=== PATIENT | male | born 1955 | race Caucasian/White ===

== ENCOUNTER 2021-08-20 19:32 | Emergency (ER) | payer MEDICARE ==
[~2021-08-20] VITALS: Ht 180.3 cm; Wt 72.7 kg
[~2021-08-20 19:32] MED LIST: ALBU17IN INH; AVEL1TAB2 PO; CARA1TAB2 PO; COUM1TAB17 PO; NICO21DI3 EXT; NORCOBULK PO; PRED20TA PO; PROT1TAB2 PO; SYMB80INH INH; VITMTA PO; ZANTTAB PO; ZOFR4SOL PO
[2021-08-20 19:33] VITALS: BP 127/88
--- OUTSIDE RECORDS SUMMARY | 2021-08-20 19:40 | CCD | Continuity of Care Document ---
Author Author [facility] Organization Unknown Address [address] [place] [id number] Phone [phone] Care Team Providers Care Tailor Garment Fitter Name Role Phone Ivana JESUSCKarine AUTM [phone] Social History Type Date Description Comments Sex Unknown Medications Active Medications SIG Qnty Indications Ordering Provide r Date Trelegy Ellipta 100- 62.5-25mcg/Inh Aerosol by mouth twice a day 60units [facility] 07/19/2021 Cyclobenzaprine HCL 10mg Tablets take 1 tablet by mouth twice daily as needed for muscle spasm 60tabs [facility] 03/09/2021 Breo Ellipta 100-25mcg/Inh Aerosol [facility] Medications Administered in Office Medication SIG Qnty Indications Ordering Provider Date Technetium TC 99M Sestamibi Injection [facility] 03/04/2017 Vital Signs Date Vital Result Comment 07/19/2021 10:53am Height 71 inches 5'11" Weight 164.00 lb BMI (Body Mass Index) 22.9 kg/m2 Body Temperature 97.5 F BP Systolic 129 mmHg BP Diastolic 85 mmHg Heart Rate 94 /min O2 % BldC Oximetry 95 % 03/09/2021 11:02am Height 71 inches 5'11" Weight 153.38 lb BMI (Body Mass Index) 21.4 kg/m2 Body Temperature 98.1 F BP Systolic 130 mmHg BP Diastolic 82 mmHg Heart Rate 98 /min O2 % BldC Oximetry 95 % Procedures Date Code Description Status 07/19/2021 57671 Office/Outpatient Established Lo w MDM 20-29 Min Completed 03/09/2021 28525 Office/Outpatient Established Mo d MDM 30-39 Min Completed Encounters Type Date Location Provider Dx Diagnosis Office Visit 07/19/2021 10:45a [facility] M45.2 Ankylosing spondylitis of cervical region J43.9 Emphysema, unspecified Office Visit 03/09/2021 11:00a [facility] I10 Essential (primary) hypertension J43.9 Emphysema, unspecified M45.2 Ankylosing spondylitis of ce rvical region Assessments Date Code Description Provider 07/19/2021 M45.2 [facility] 07/19/2021 J43.9 Emphysema, unspecified Jeromy maradiaga [facility] 03/09/2021 I10 Essential (primary) hypertension [facility] 03/09/2021 J43.9 Emphysema, unspecified [facility]adiaga [facility] 03/09/2021 M45.2 [facility]
--- OUTSIDE RECORDS SUMMARY | 2021-08-20 19:40 | CCD ---
Author Author [facility] Organization [facility] Address Unknown Phone Unavailable Care Team Providers Care Beer Runner Name Role Phone Jefferson Varela MD Unavailable Unavailable Jefferson Varela MD Unavailable Unavailable Jefferson Varela MD Unavailable Unavailable Jefferson Varela MD Unavailable Unavailable Jefferson Varela MD Unavailable Unavailable Jefferson Varela MD Unavailable Unavailable GWENLAUREEN MD Unavailable Unavailable GWENLAUREEN MD Unavailable Unavailable GWENRHYSQBOJAVIER GARCIA MD Unavailable Unavailable GWENRHYSQBOJAVIER GARCIA MD Unavailable Unavailable GWENRHYSQBOJAVIER GARCIA MD Unavailable Unavailable GWENRHYSQBOJAVIER GARCIA MD Unavailable Unavailable GWENRHYSQBOJAVIER GARCIA MD Unavailable Unavailable GWEN MAQBOJAVIER GARCIA MD Unavailable Unavailable GWEN MAQBOJAVIER GARCIA MD Unavailable Unavailable GWEN MAQBOJAVIER GARCIA MD Unavailable Unavailable GWEN MAQBOOL JOSE ROSADO Unavailable Unavailable GWEN MAQBOOL JOSE ROSADO Unavailable Unavailable GWEN MAQBOOL JOSE ROSADO Unavailable Unavailable GWEN MAQBOOL JOSE ROSADO Unavailable Unavailable GWEN MAQBOOL JOSE ROSADO Unavailable Unavailable GWEN MAQBOOL JOSE ROSADO Unavailable Unavailable GWEN, MAQBOOL JOSE MD Unavailable Unavailable GWEN, MAQBOOL JOSE MD Unavailable Unavailable GWEN, MAQBOOL JOSE MD Unavailable Unavailable GWEN, MAQBOOL JOSE MD Unavailable Unavailable GWEN, MAQBOOL JOSE MD Unavailable Unavailable GWEN, MAQBOOL JOSE MD Unavailable Unavailable GWEN, MAQBOOL JOSE MD Unavailable Unavailable GWEN, MAQBOOL JOSE MD Unavailable Unavailable GWEN, MAQBOOL JOSE MD Unavailable Unavailable GWEN, MAQBOOL JOSE MD Unavailable Unavailable GWEN, MAQBOOL JOSE MD Unavailable Unavailable GWEN, MAQBOOL JOSE MD Unavailable Unavailable GWEN, MAQBOOL JOSE MD Unavailable Unavailable GWEN, MAQBOOL JOSE MD Unavailable Unavailable GWEN, MAQBOOL JOSE MD Unavailable Unavailable GWEN, MAQBOOL JOSE MD Unavailable Unavailable GWEN, MAQBOOL JOSE MD Unavailable Unavailable GWEN, MAQBOOL JOSE MD Unavailable Unavailable GWEN, MAQBOOL JOSE MD Unavailable Unavailable GWEN, MAQBOOL JOSE MD Unavailable Unavailable GWEN, MAQBOOL JOSE MD Unavailable Unavailable GWEN, MAQBOOL JOSE MD Unavailable Unavailable GWEN, MAQBOOL JOSE MD Unavailable Unavailable GWEN, MAQBOOL JOSE MD Unavailable Unavailable GWEN, MAQBOOL JOSE MD Unavailable Unavailable GWEN, MAQBOOL JOSE MD Unavailable Unavailable GWEN, MAQBOOL JOSE MD Unavailable Unavailable GWEN, MAQBOOL JOSE MD Unavailable Unavailable GWEN, MAQBOOL JOSE MD Unavailable Unavailable GWEN, MAQBOOL JOSE MD Unavailable Unavailable GWEN, MAQBOOL JOSE MD Unavailable Unavailable GWEN, MAQBOOL JOSE MD Unavailable Unavailable GWEN, MAQBOOL JOSE MD Unavailable Unavailable GWEN, MAQBOOL JOSE MD Unavailable Unavailable GWEN, MAQBOOL JOSE MD Unavailable Unavailable GWEN, MAQBOOL JOSE MD Unavailable Unavailable GWEN, MAQBOOL JOSE MD Unavailable Unavailable GWEN, MAQBOOL JOSE MD Unavailable Unavailable GWEN, MAQBOOL JOSE MD Unavailable Unavailable GWEN, MAQBOOL JOSE MD Unavailable Unavailable GWEN, MAQBOOL JOSE MD Unavailable Unavailable GWEN, MAQBOOL JOSE MD Unavailable Unavailable GWEN, MAQBOOL JOSE MD Unavailable Unavailable GWEN, MAQBOOL JOSE MD Unavailable Unavailable GWEN, MAQBOOL JOSE MD Unavailable Unavailable GWEN, MAQBOOL JOSE MD Unavailable Unavailable GWEN, MAQBOOL JOSE MD Unavailable Unavailable GWEN, MAQBOOL JOSE MD Unavailable Unavailable GWEN, MAQBOOL JOSE MD Unavailable Unavailable GWEN, MAQBOOL JOSE MD Unavailable Unavailable GWEN, MAQBOOL JOSE MD Unavailable Unavailable GWEN, MAQBOOL JOSE MD Unavailable Unavailable GWEN, MAQBOOL JOSE MD Unavailable Unavailable GWEN, MAQBOOL JOSE MD Unavailable Unavailable GWEN, MAQBOOL JOSE MD Unavailable Unavailable GWEN, MAQBOOL JOSE MD Unavailable Unavailable GWEN, MAQBOOL JOSE MD Unavailable Unavailable GWEN, MAQBOOL JOSE MD Unavailable Unavailable GWEN, MAQBOOL JOSE MD Unavailable Unavailable GWNE, MAQBOOL JOSE MD Unavailable Unavailable GWEN, MAQBOOL JOSE MD Unavailable Unavailable GWEN, MAQBOOL JOSE MD Unavailable Unavailable GWEN, MAQBOOL JOSE MD Unavailable Unavailable GWEN, MAQBOOL JOSE MD Unavailable Unavailable GWEN, MAQBOOL JOSE MD Unavailable Unavailable GWEN, MAQBOOL JOSE MD Unavailable Unavailable GWEN, MAQBOOL JOSE MD Unavailable Unavailable GWEN, MAQBOOL JOSE MD Unavailable Unavailable GWEN, MAQBOOL JOSE MD Unavailable Unavailable GWEN, MAQBOOL JOSE MD Unavailable Unavailable GWEN, MAQBOOL JOSE MD Unavailable Unavailable GWEN, MAQBOOL JOSE MD Unavailable Unavailable GWEN, MAQBOOL JOSE MD Unavailable Unavailable GWEN, MAQBOOL JOSE MD Unavailable Unavailable GWEN, MAQBOOL JOSE MD Unavailable Unavailable GWEN, MAQBOOL JOSE MD Unavailable Unavailable GWEN, MAQBOOL JOSE MD Unavailable Unavailable GWEN, MAQBOOL JOSE MD Unavailable Unavailable GWEN, MAQBOOL JOSE MD Unavailable Unavailable GWEN, MAQBOOL JOSE MD Unavailable Unavailable GWEN, MAQBOOL JOSE MD Unavailable Unavailable GWEN, MAQBOOL JOSE MD Unavailable Unavailable GWEN, MAQBOOL JOSE MD Unavailable Unavailable GWEN, MAQBOOL JOSE MD Unavailable Unavailable GWEN, MAQBOOL JOSE MD Unavailable Unavailable GWEN, MAQBOOL JOSE MD Unavailable Unavailable GWEN, MAQBOOL JOSE MD Unavailable Unavailable GWEN, MAQBOOL JOSE MD Unavailable Unavailable GWEN, MAQBOOL JOSE MD Unavailable Unavailable GWEN, MAQBOOL JOSE MD Unavailable Unavailable GWEN, MAQBOOL JOSE MD Unavailable Unavailable GWEN, MAQBOOL JOSE MD Unavailable Unavailable GWEN, MAQBOOL JOSE MD Unavailable Unavailable GWEN, MAQBOOL JOSE MD Unavailable Unavailable GWEN, MAQBOOL JOSE MD Unavailable Unavailable GWEN, MAQBOOL JOSE MD Unavailable Unavailable GWEN, MAQBOOL JOSE MD Unavailable Unavailable GWEN, MAQBOOL JOSE MD Unavailable Unavailable GWEN, MAQBOOL JOSE MD Unavailable Unavailable GWEN, MAQBOOL JOSE MD Unavailable Unavailable GWEN, MAQBOOL JOSE MD Unavailable Unavailable GWEN, MAQBOOL JOSE MD Unavailable Unavailable GWEN, MAQBOOL JOSE MD Unavailable Unavailable GWEN, MAQBOOL JOSE MD Unavailable Unavailable WGEN, MAQBOOL JOSE MD Unavailable Unavailable GWEN, MAQBOOL JOSE MD Unavailable Unavailable GWEN, MAQBOOL JOSE MD Unavailable Unavailable GWEN, MAQBOOL JOSE MD Unavailable Unavailable GWEN, MAQBOOL JOSE MD Unavailable Unavailable GWEN, MAQBOOL JOSE MD Unavailable Unavailable GWEN, MAQBOOL JOSE MD Unavailable Unavailable GWEN, MAQBOOL JOSE MD Unavailable Unavailable GWEN, MAQBOOL JOSE MD Unavailable Unavailable GWEN, MAQBOOL JOSE MD Unavailable Unavailable GWEN, MAQBOOL JOSE MD Unavailable Unavailable GWEN, MAQBOOL JOSE MD Unavailable Unavailable GWEN, MAQBOOL JOSE MD Unavailable Unavailable GWEN, MAQBOOL JOSE MD Unavailable Unavailable GWEN, MAQBOOL JOSE MD Unavailable Unavailable GWEN, MAQBOOL JOSE MD Unavailable Unavailable GWEN, MAQBOOL JOSE MD Unavailable Unavailable GWEN, MAQBOOL JOSE MD Unavailable Unavailable GWEN, MAQBOOL JOSE MD Unavailable Unavailable GWEN, MAQBOOL JOSE MD Unavailable Unavailable GWEN, MAQBOOL JOSE MD Unavailable Unavailable GWEN, MAQBOOL JOSE MD Unavailable Unavailable GWEN, MAQBOOL JOSE MD Unavailable Unavailable GWEN, MAQBOOL JOSE MD Unavailable Unavailable GWEN, MAQBOOL JOSE MD Unavailable Unavailable GWEN, MAQBOOL JOSE MD Unavailable Unavailable GWEN, MAQBOOL JOSE MD Unavailable Unavailable GWEN, MAQBOOL JOSE MD Unavailable Unavailable GWEN, MAQBOOL JOSE MD Unavailable Unavailable GWEN, MAQBOOL JOSE MD Unavailable Unavailable GWEN, MAQBOOL JOSE MD Unavailable Unavailable GWEN, MAQBOOL JOSE MD Unavailable Unavailable GWEN, MAQBOOL JOSE MD Unavailable Unavailable GWEN, MAQBOOL JOSE MD Unavailable Unavailable GWEN, MAQBOOL JOSE MD Unavailable Unavailable GWEN, MAQBOOL JOSE MD Unavailable Unavailable Re-disclosure Warning The records that you are about to access may contain information from federally-assisted alcohol or drug abuse programs. If such information is present, then the following federally mandated warning applies: This information has been disclosed to you from records protected by federal confidentiality rules (42 CFR part 2). The federal rules prohibit you from making any further disclosure of this information unless further disclosure is expressly permitted by the written consent of the person to whom it pertains or as otherwise permitted by 42 CFR part 2. A general authorization for the release of medical or other information is NOT sufficient for this purpose. The Federal rules restrict any use of the information to criminally investigate or prosecute any alcohol or drug abuse patient.The records that you are about to access may contain highly sensitive health information, the redisclosure of which is protected by Article 27-F of the [facility] Public Health law. If you continue you may have access to information: Regarding HIV / AIDS; Provided by facilities licensed or operated by the [facility] Office of Mental Health; or Provided by the [facility] Office for People With Developmental Disabilities. If such information is present, then the following [facility] mandated warning applies: This information has been disclosed to you from confidential records which are protected by state law. State law prohibits you from making any further disclosure of this information without the specific written consent of the person to whom it pertains, or as otherwise permitted by law. Any unauthorized further disclosure in violation of state law may result in a fine or chcf sentence or both. A general authorization for the release of medical or other information is NOT sufficient authorization for further disc losure. Allergies and Adverse Reactions Type Description Substance Reaction Status Data Source(s ) No Known Allergies No Known Allergies [facility] Family History Family Member Name Family Member Gender Family Member Status Date o f Status Description Data Source(s) Unknown Male Problem [facility] ([facility]) Encounters Encounter Providers Location Date Indications Data Source(s ) Outpatient Attender: JOSE POWELL MD [facility] 07/19 10:45:00 AM EDT [facility] (Jose Powell MD) Emergency Attender: Jefferson Varela MDConsultant: JOSE POWELL MD 03/18/2021 04:29:00 AM EDT - 03/18/2021 06:17:00 AM EDT [facility] Patient discharged. Outpatient Attender: JOSE POWELL MD [facility] 03/09 11:00:00 AM EDT [facility] (Jose Powell MD) Medications Medication Brand Name Start Date Product Form Dose Route Admi nistrative Instructions Pharmacy Instructions Status Indications Reaction Description Data Source(s) 30 ACTUAT fluticasone furoate 0.1 MG/ACT UAT / umeclidinium 0.0625 MG/ACTUAT / vilanterol 0.025 MG/ACTUAT Dry Powder Inhaler [Trelegy] 100-62.5-25 mcg FLUTICASONE/UMECLIDIN/VILANTER 07/20/2021 12:00:00 AM EDT blister with device 60 INHALE ONE PUFF BY MOUTH TWICE A DAY INHALE ONE PUFF BY MOUTH TWICE A DAY SOLD: 08/03/2021 [facility] Trelegy Ellipta Trelegy Ellipta 07/19/2021 12:00:00 AM EDT ORAL active [facility] (Jose maradiaga MD) 20 mg 03/18/2021 12:00:00 AM EDT tablet 10 TAKE TWO TABLETS BY MOUTH ONCE A DAY TAKE TWO TABLETS BY MOUTH ONCE A DAY SOLD: 03/18/2021 [facility] 250 mg 03/18/2021 12:00:00 AM EDT tablet 5 TAKE ONE TABLET BY MOUTH ONCE A DAY TAKE ONE TABLET BY MOUTH ONCE A DAY SOLD: 03/18/2021 [facility] Cyclobenzaprine hydrochloride 10 MG Oral Tablet CYCLOBENZAPR INE HCL 03/09/2021 12:00:00 AM EDT tablet 60 TAKE ONE TABLET BY MOUTH TWO TIMES A DAY NEEDED FOR MUSCLE SPASM TAKE ONE TABLET BY MOUTH TWO TIMES A DAY NEEDED FOR MUSCLE SPASM SOLD: 03/09/2021 [facility] Cyclobenzaprine hydrochloride 10 MG Oral Tablet Cyclobenzapr ine HCL 03/09/2021 12:00:00 AM EDT ORAL active M [facility] (Jose Powell MD) 100-25 mcg/dose 07/14/2020 12:00:00 AM EDT blister with lynn ce 60 INHALE ONE PUFF BY MOUTH EVERY DAY INHALE ONE PUFF BY MOUTH EVERY DAY SOLD: 01/03/2021 [facility] 100-25 mcg/dose 07/14/2020 12:00:00 AM EDT blister with lynn ce 60 INHALE ONE PUFF BY MOUTH EVERY DAY INHALE ONE PUFF BY MOUTH EVERY DAY SOLD: 07/14/2020 [facility] 100-25 mcg/dose 07/14/2020 12:00:00 AM EDT blister with lynn ce 60 INHALE ONE PUFF BY MOUTH EVERY DAY INHALE ONE PUFF BY MOUTH EVERY DAY SOLD: 09/20/2020 [facility] 100-25 mcg/dose 07/14/2020 12:00:00 AM EDT blister with lynn ce 60 INHALE ONE PUFF BY MOUTH EVERY DAY INHALE ONE PUFF BY MOUTH EVERY DAY SOLD: 08/16/2020 [facility] 30 ACTUAT fluticasone furoate 0.1 MG/ACT UAT / vilanterol 0.025 MG/ACTUAT Dry Powder Inhaler [Breo] 100-25 mcg/dose FLUTICASONE/VILANTEROL 07/14/2020 12:00 :00 AM EDT blister with device 60 INHALE ONE PUFF BY MO UTH EVERY DAY INHALE ONE PUFF BY MOUTH EVERY DAY SOLD: 02/05/2021 [facility] Insurance Providers Payer name Policy type / Coverage type Policy ID Covered libertarian ID Covered libertarian's relationship to larsen Policy [place] Plan Information IKER CLAIM ADMIN WORK COMP [facility]#[id number] SP B#[phone] [facility] [employer] [facility] [place] [id number] 18 [id number] [facility] Secure [employer] [facility] Commercial [id number] Self [id number] [employer] [place] [id number] 18 [id number] [employer] UN MEDICARE-PHYSICIAN [id number] 18 [id number] [employer]/UNHC MEDICARE -CLINIC [id number] 18 [id number] MEDICARE -O/P [id number] 18 [id number] UNHC AMERICHOICE XIX -HMO [id number] 18 [id number] AMERICHOICE UNHC XIX PHY -HMO [id number] 18 [id number] MEDICARE [id number] SP [id number] A MEDICARE COMPLETE [id number] SP [id number] MEDICARE [id number] SP [id number] A MEDICARE [id number] SP [id number] SELF PAY 5 UNAVAILABLE 1 [facility] ADM S 2 [id number] [employer] UN MEDICARE O/P [id number] 18 [id number] A Problems, Conditions, and Diagnoses Code Display Name Description Problem Type Effective Dates Data Source(s) K71075 Nicotine dependence, unspecified, uncomp licated Nicotine dependence, unspecified, uncomplicated Diagnosis 03/18/2021 04:29:[address] [facility] J439 Emphysema, unspecified Emphysema, unspecified Diagnosi s 03/18/2021 04:29:00 AM EDT [facility] R0600 Dyspnea, unspecified Dyspnea, unspecified Diagnosis [facility] Procedure Description Date Indications Data Source(s) OFFICE OUTPATIENT VISIT 15 MINUTES 07/19/2021 12:00:00 AM EDT [facility] (Jose Powell MD) OFFICE OUTPATIENT VISIT 25 MINUTES 03/09/2021 12:00:00 AM EDT [facility] (Jose Powell MD) Results ID Date Data Source [id number] 03/18/2021 04:29:00 AM EDT [facility] 1 OrderSheet [facility] [address] [place] [address] Phone #: ext- [phone] 03/18/2021 04:26 Patient: HERRERA DE LA CRUZ Sex: M : 1955 Age: 65yWEIGHT:69.8 kg (M) HEIGHT:71 inches (S) BMI:21.5ALLERGIES: No Known Drug AllergyCHIEF COMPLAINT: dyspnea, COPDDIAGNOSIS: Chronic obstructive lung diseaseLAB ORDERSOrder Description Priority Entered Acknowledged InitialedDIAGNOSTIC STUDY ORDERSOrder Description Priority Entered Acknowledged InitialedChest 2 View STAT 04:39 03/18/2021 04:45 Javier(Oxygen?(No)) Vera Mcadams RN R.N.; Per protocol; Jefferson Varela Reason for Study: Shortness of BreathMEDICATION/IV/DRIP/FLUID ORDERSOrder Description Priority Entered Acknowledged InitialedDuoNeb Neb Tx 3 04:55 03/18/2021 Ack'd: 04:56 Vera 05:02 StevenmL (NOW x1) Jefferson Varela ; Andrey Mcadams RNpredniSONE PO 60 04:55 03/18/2021 Ack'd: 04:56 Vera 05:03 Stevenmg (NOW x1) Jefferson Varela ; Andrey Mcadams RNZithromax PO 500 05:20 03/18/2021 05:44 Vera Blairmg (NOW x1) Jefferson Varela ; Pema BellDuoNeb Neb Tx 3 06:07 03/18/2021 06:08 Vera Roberts (NOW x1) Vera Mcadams R.N., R.N.; Verbal order per; Jefferson VarelaGENERAL ORDERSOrder Description Priority Entered Acknowledged InitialedEKG 05:20 03/18/2021 05:32 Jefferson Gill ; Pema RN[Electronically signed by Vera Romero R.N. (06:18 03/18/2021)][Electronically signed by Jefferson Varela (07:24 03/25/2021)] 2 OrderSheet [facility] [address] [place] [address] Phone #: ext- [phone] 03/18/2021 04:26 Patient: HERRERA DE LA CRUZ Sex: M : 1955 Age: 65y[Electronically locked by Vera Romero R.N. (06:18 03/18/2021)] Name Value Range Interpretation Code Description Data Cheryl rce(s) Supporting Document(s) ID Date Data Source [id number] 03/18/2021 04:29:00 AM EDT [facility] 1 Medication Reconciliation Report [facility] [address] [place] [address] Phone #: [phone]- [phone] 03/18/2021 04:26 Patient: HERRERA DE LA CRUZ Sex: M : 1955 Age: 65yWeight: 69.8 kgHeight/Length: 71 in.BMI: 21.5ALLERGIES: No Known Drug AllergyThe patient's Home Medications are listed below:CONTINUE TAKING THE FOLLOWING MEDICATIONS: Cyclobenzaprine HCl Oral 10 mg, 2x a day, prn Trelegy Ellipta InhalationThe source(s) of the original Home Medication information:Not obtained.The following Medications were given to the patient in the Emergency Department:Duoneb [Neb Tx] Neb TX 1 unit dose, administered: 05:02 1Prednisone [PO] PO 60 mg, administered: 05:02 03/18/2021Zithromax [PO] PO 500 mg, administered: 05:38 1Duoneb [Neb Tx] Neb TX 1 unit dose, administered: 06:03 03/18/2021The following Medications were prescribed to the patient:prednisone 20 mg tablet Take 2 tablet once a day for 5 days -- Dispense 10 tablet. Refills: 0.Substitution permitted. Note to Pharmacy - Rx DISCOUNT CARD: $ 5.6. USE: BIN:[id number],PCN:MCKENZIE, Group:[id number], ID:[id number].Pharmacy - [facility] [address] [place] [id number]. .Zithromax 250 mg tablet Take 1 tablet once a day -- Dispense 5 tablet. Refills: 0. Substitutionpermitted. Note to Pharmacy - Rx DISCOUNT CARD: $ 5.6. USE: BIN:[id number], PCN:MCKENZIE,Group:[id number], ID:[id number].[facility] [address] [place] [address] [id number]. Phone: [phone] Medication Reconciliation Report [facility] [address] [place] [address] Phone #: ext- [phone] 03/18/2021 04:26 Patient: HERRERA DE LA CRUZ Sex: M : 1955 Age: [phone] . -- Jefferson Varela Name Value Range Interpretation Code Description Data Cheryl rce(s) Supporting Document(s) ID Date Data Source [id number] 03/18/2021 04:29:00 AM EDT [facility] 1 Medication Administration Record [facility] [address] [place] [address] Phone #: ext- [phone] 03/18/2021 04:26 Patient: HERRERA DE LA CRUZ Sex: M : 1955 Age: 65yWeight: 69.8 kgHeight/Length: 71 inBMI: 21.5ALLERGIES: No Known Drug Allergy Date/Time Medication Administered Medication OrderedGiven DUONEB [NEB TX] DuoNeb Neb Tx 3 mL (NOW x1)05:02 03/18/2021 Dose: 1 unit dose Nebulizer Nicole Mayer PREDNISONE [PO] predniSONE PO 60 mg (NOW x1)05:02 03/18/2021 Dose: 60 mg Tablets Nicole Phipps ZITHROMAX [PO] (AZITHROMYCIN) Zithromax PO 500 mg (NOW x1)05:38 03/18/2021 Dose: 500 mg Tablets Lisa Mcadams R.N.Given DUONEB [NEB TX] DuoNeb Neb Tx 3 mL (NOW x1)06:03 03/18/2021 Dose: 1 unit dose Nebulizer Ravi Mcadams R.N. Name Value Range Interpretation Code Description Data Cheryl rce(s) Supporting Document(s) ID Date Data Source [id number] 03/18/2021 04:29:00 AM EDT [facility] 1 General Instructions [facility] [address] [place] [address] Phone #: [phone]- [phone] 03/18/2021 04:26 Patient: HERRERA DE LA CRUZ Sex: M : 1955 Age: 65yAcute exacerbation of COPD (emphysematous)INSTRUCTIONSAvoid tobacco smoke.Your Current Medications: Your current home medications have been reviewed.CONTINUE TAKING THE FOLLOWING MEDICATIONS:Cyclobenzaprine HCl Oral : 10 mg 2x a day, prn.Trelegy Ellipta Inhalation.Prescription Medications:prednisone 20 mg tablet Take 2 tablet once a day for 5 days -- Dispense 10 tablet. Refills: 0.Substitution permitted. Note to Pharmacy - Rx DISCOUNT CARD: $ 5.6. USE: BIN:[id number],PCN:MCKENZIE, Group:[id number], ID:[id number].[facility] - [facility] [address] [place] [address] [id number]. .Zithromax 250 mg tablet Take 1 tablet once a day -- Dispense 5 tablet. Refills: 0. Substitutionpermitted. Note to Pharmacy - Rx DISCOUNT CARD: $ 5.6. USE: BIN:[id number], PCN:MCKENZIE,Group:[id number], ID:[id number].[facility] [address] [place] [address] [phone]. .Understanding of the discharge instructions verbalized by patient.Follow-up with: Jose Powell MD, Cardiology, , [address] [place] [address], [phone] Follow up in two days if not better. Call for an appointment. Reason for referral: evaluation. ADDITIONAL INFORMATIONBronchitis, Antibiotic Treatment (Adult) 2 General Instructions [facility] Department [address] [place] [address] Phone #: ext- [phone] 03/18/2021 04:26 Patient: HERRERA DE LA CRUZ Sex: M : 1955 Age: 65yBronchitis is an infection of the air passages (bronchial tubes) in your ac gs. It often occurs when youhave a cold. This illness is contagious during the first few days and is spread through the air bycoughing and sneezing, or by direct contact (touching the sick person and then touching your owneyes, nose, or mouth).Symptoms of bronchitis include cough with mucus (phlegm) and low-grade fever. Bronchitis usuallylasts 7 to 14 days. Mild cases can be treated with simple home remedies. More severe infection istreated with an antibiotic.Home careFollow these guidelines when caring for yourself at home: If your symptoms are severe, rest at home for the first 2 to 3 days. When you go back to your usual activities, don't let yourself get too tired. Don't smoke. Also stay away from secondhand smoke. You may use [id number]-[id number] medicines to control fever or pain, unless another medicine 3 General Instructions [facility] Emergency Department [address] [place] [address] Phone #: ext- [phone] 03/18/2021 04:26 Patient: HERRERA DE LA CRUZ Sex: M : 1955 Age: 65y was prescribed. If you have chronic liver or kidney disease or have ever had a stomach ulcer or gastrointestinal bleeding, talk with your healthcare provider before using these medicines. Also talk to your provider if you are taking medicine to prevent blood clots. Aspirin should never be given to anyone younger than 18 who is ill with a viral infection or fever. It may cause severe liver or brain damage. Your appetite may be low, so a light diet is fine. Stay well hydrated by drinking 6 to 8 glasses of fluids per day. This includes water, soft drinks, sports drinks, juices, tea, or soup. Extra fluids will help loosen mucus in your nose and lungs. Ptno-hpf-tgqwicp cough, cold, and sore-throat medicines will not shorten the length of the illness, but they may be helpful to reduce your symptoms. Don't use decongestants if you have high blood pressure. Finish all antibiotic medicine. Do this even if you are feeling better after only a few days.Follow-up careFollow up with your healthcare provider, or as advised. If you had an X-ray or ECG(electrocardiogram), a specialist will review it. You will be told of any new test results that may affectyour care.If you are age 65 or older, if you smoke, or if you have a chronic lung disease or condition that affectsyour immune system, ask your healthcare provider about getting a pneumococcal vaccine and ayearly flu shot (influenza vaccine).When to seek medical adviceCall your [place] health provider right away if any of these occur: Fever of 100.4F (38C) or higher, or as directed by your healthcare provider Coughing up more sputum Weakness, drowsiness, headache, facial pain, ear pain, or a stiff neckCall 911Call 911 if any of these occur. Coughing up blood Weakness, drowsiness, headache, or stiff neck that get worse Trouble breathing, wheezing, or pain with breathing 4 General Instructions [facility] Department [address] [place] [address] Phone #: ext- [phone] 03/18/2021 04:26 Patient: HERRERA DE LA CRUZ Sex: M : 1955 Age: 65y [phone] [employer]. [address] [place] [address], [place], [place] [address]. All rights reserved. This information is not intended as asubstitute for professional medical care. Always follow your healthcare professional's instructions. You have been given the following additional information: Bronchitis, Antibiotic Treatment (Adult)(Electronically signed by Jefferson Varela 03/25/2021 07:24) Name Value Range Interpretation Code Description Data Cheryl rce(s) Supporting Document(s) ID Date Data Source [id number] 03/18/2021 04:29:00 AM EDT [facility] 1 Clinical Report - Nurses [facility] Emergency Department [address] [place] [address] Phone #: ext- [phone] 03/18/2021 04:26 Patient: HERRERA DE LA CRUZ Sex: M : 1955 Age: 65yTRIAGEArrived by private vehicle. Historian: patient.Triage time: 04:27 03/18/2021.Chief Complaint: DIFFICULTY BREATHING.Onset. (4 days ago). --04:28 03/18/21 Vera Mcadams R.N.Acuity: LEVEL 3.SEPSIS SCREEN: SIRS SCREEN: respiratory rate greater than 20. SEPSIS SCREEN NEGATIVE. Nosuspected or confirmed signs of infection present. --04:31 03/18/21 Vera Mcadams R.N.04:29 03/18/21. BP: 115/87. MAP: 96. HR: 89. RR: 22. O2 saturation: 94%. Temp: 97.7 F. Pain level now:04/14. --04:31 03/18/21 Vera Mcadams R.N.( sore throat, head ache, one episode of vomiting just PSYCHOMETRIST). He has had a cough. --04:35 03/18/21 Shyam Mcadams R.N.Weight: 69.8 kg measured. Height/L ength: 71 inches Per Patient. BMI: 21.5. --04:27 03/18/21 Vera Sherwood R.N.MedicationsTrelegy Ellipta Inhalation. --04:32 03/18/21 Vera Mcadams R.N. Cyclobenzaprine HCl Oral 10 mg, 2x a day as needed. --04:33 03/18/21 Vera Mcadams R.N.AllergiesNo Known Drug Allergy. --04:31 03/18/21 Vera Mcadams R.N.PROBLEMS:Bronchitis.Neck Pain. --04:34 03/18/21 Vera Mcadams R.N.The following entry was modified by Vera Mcadams R.N., 04:34 03/18/21Pulmonary Embolism. --04:34 03/18/21 Vera Mcadams R.N..ADDITIONAL SURGERIES:Appendectomy.Carpal Tunnel Surgery.Cholecystectomy. 2 Clinical Report - Nurses [facility] Emergency Department [address] [place] [address] Phone #: [phone] vue- [phone] 03/18/2021 04:26 Patient: HERRERA DE LA CRUZ Sex: M : 1955 Age: 65y Hernia repair with mesh. Neck Surgery (X2). --04:34 03/18/21 Vera Mcadams R.N. History PAST MEDICAL HX: Chronic obstructive pulmonary disease. SOCIAL HX: Former smoker, end date 02/2021. Drug use: marijuana. (last use 7pm). No alcohol use. He was offered HIV testing but declined and hepatitis C testing but declined. He has not traveled outside the [place] Infectious disease exposure: No infectious disease exposure. SELF HARM ASSESSMENT: Self harm assess ment was performed. The patient answered "no" to the question(s) "Do you have thoughts of harming or killing yourself?" and "Have you recently had thoughts about harming or killing others?". ABUSE ASSESSMENT: No report of abuse. FALL RISK ASSESSMENT: Fall risk assessment completed. No risk factors identified. Fall interventions initiated. Bed in low position. Brakes on. --04:28 03/18/21 Vera Mcadams R.N. FAMILY HX: No significant family medical history. --05:58 03/18/21 Jefferson Varela.PHYSICAL ASSESSMENTAmbulatory to room.GENERAL / NEURO / PSYCH: Alert. Oriented X 4. Appears anxious.RESPIRATORY: Mild respiratory distress. The patient can speak in full sentences. Cough productive ofmoderate amounts of brown sputum. Decreased breath sounds.CVS: Capillary refill less than 2 seconds.GI / : ( Had normal BM this morning).SKIN: Skin is warm and dry. --04:38 03/18/21 Vera Mcadams R.N.NURSING PROGRESS NOTESPatient gowned. Head of bed elevated. Call light placed in reach. Bed placed in lowest position.Brakes of bed on. --04:35 03/18/21 Vera Mcadams R.N. 04:51 03/18/21. Patient returned from radiology by wheelchair with radiology assistant. --05:01 03/18/21 Vera Mcadams R.N. 05:02 03/18/2021 Duoneb Neb TX Nebulizer 1 unit dose given. Given by the nurse. Allergies verified and confirmed 5 rights. Information reviewed with patient including reason for taking this medication, signs of allergic reaction and precautions. Verbalizes understanding. --05:02 03/18/21 Javier Mcadams RN 05:02 03/18/2021 Prednisone PO Tablets 60 mg given. Allergies verified and confirmed 5 rights. Information reviewed with patient including reason for taking this medication, signs of allergic reaction and precautions. Verbalizes understanding. --05:03 03/18/21 Javier Mcadams RN 3 Clinical Report - Nurses [facility] Emergency Department [address] [place] [address] Phone #: ext- [phone] 03/18/2021 04:26 Patient: HERRERA DE LA CRUZ [facility]#: [id number] Sex: M : 1955 Age: 65y 05:38 03/18/2021 Zithromax (Azithromycin) PO Tablets 500 mg given. Allergies verified and confirmed 5 rights. Information reviewed with patient including reason for taking this medication. Verbalizes understanding. --05:44 03/18/21 Vera Mcadams R.N. EKG time: (05:31 03/18/2021). EKG was performed by a nurse and shown to the ED physician. --05:44 03/18/21 Vera Mcadams R.N. 05:30 03/18/21. BP: 96/67. MAP: 76. HR: 80. RR: 22. O2 saturation: 93%. --05:45 03/18/21 Vera Mcadams R.N. The patient is calm and resting quietly. Overall patient status is improved. --05:45 03/18/21 Vera Mcadams R.N. 06:03 03/18/2021 Duoneb Neb TX Nebulizer 1 unit dose given. Given by the nurse. Allergies verified and confirmed 5 rights. Information reviewed with patient including reason for taking this medication. Verbalizes understanding. --06:08 03/18/21 Vera Mcadams R.N.DISPOSITION / DISCHARGE Departure time: 06:17 03/18/2021. Condition at departure: improved and stable. No learning barriers present. Reviewed medication(s) information. Prescription(s) sent electronically to pharmacy. Patient verbalized understanding. Written instructions provided in [place]. The patient was discharged by the physician. He was discharged home. He left ambulatory and via private vehicle. --06:17 03/18/21 Vera Mcadams R.N. 06:16 03/18/21. BP: 107/74. MAP: 85. HR: 87. RR: 18. O2 saturation: 97%. Temp: 97.1 F. Pain level now: 3/10. --06:17 03/18/21 Vera Mcadams R.N.[facility] ked/Released at 03/18/2021 06:18 by Vera Mcadams R.N. Name Value Range Interpretation Code Description Data Cheryl rce(s) Supporting Document(s) ID Date Data Source [id number] 03/18/2021 04:29:00 AM EDT [facility] 1 Clinical Report - Physicians/Mid Levels [facility] Emergency Department [address] [place] [address] Phone #: ext- [phone] 03/18/2021 04:26 Patient: HERRERA DE LA CRUZ Sex: M : 1955 Age: 65y Time Seen: 04:52 03/18/2021. Arrived- By private vehicle. Historian- patient.HISTORY OF PRESENT ILLNESS Chief Complaint: DYSPNEA and HISTORY OF CHRONIC OBSTRUCTIVE PULMONARY DISEASE. This started about 4 days and is still present. The dyspnea is described as moderate and is worsened by walking and exertion. The patient has had a cough and dyspnea on exertion. He has had brown sputum. There has been a change from baseline. No fever, sweating episodes, whe ezing or chills. No chest pain or discomfort, calf pain, anxiety or dizziness. No tingling, numbness or palpitations. (Cough and sore throat. coughed up brown phlegm. No rib pain or chest pain with inspiration. Ran out of Breo medication weeks ago so his PCP has him on sample of new inhaler. Denies any previous admission for COPD. Lately he has been painting a room in his house. Quit smoking 3 weeks ago.). Similar symptoms previously. Patient has had similar symptoms several times. Recent medical care: Not recently seen/assessed.REVIEW OF SYSTEMSNo muscle aches, eye irritation, nasal discharge, vomiting or abdominal pain. No bloody stools, faintingepisodes, difficulty with urination, skin rash or enlarged lymph nodes. He has had a sore throat. All othersystems reviewed and are negative.PAST HISTORYSee nurses notes. Lung disease. Emphysema. No history of renal failure. Problems: Bronchitis. COPD - Chronic Obstructive Pulmonary Disease. Additional Surgeries: Appendectomy. Carpal Tunnel Surgery. Ch olecystectomy. Hernia repair with mesh. Neck Surgery. (X2). Medications: Cyclobenzaprine HCl Oral 10 mg, 2x a day as needed. Trelegy Ellipta Inhalation. Allergies: 2 Clinical Report - Physicians/[facility] Emergency Department [address] [place] [address] Phone #: ext- [phone] 03/18/2021 04:26 Patient: HERRERA DE LA CRUZ Sex: M : 1955 Age: 65y No Known Drug Allergy.SOCIAL HISTORYCurrent every day smoker.FAMILY HISTORYNo significant family medical history.ADDITIONAL NOTESThe nursing notes have been reviewed.PHYSICAL EXAMVital Signs: 03/18/2021 04:29 BP: 115/87. MAP: 96. HR: 89. RR: 22. O2 saturation: 94%. Temp: 97.7 F.Pain level now: 7/10.Appearance: Alert. No acute distress.Eyes: Pupils equal, round and reactive to light. Eyes normal inspection.ENT: Nose normal. Pharynx normal. Uvula midline. (wide spread dental caries).Neck: Normal inspection. No jugular venous distention. Neck supple.CVS: Normal heart rate and rhythm. Heart sounds normal.Respiratory: No respiratory distress. Decreased air movement. Painless inspiration. No retractions,wheezes, chest wall tenderness or dullness on percussion.Abdomen: Soft and nontender. No organomegaly.Back: Normal inspection.Skin: Skin warm and dry. Normal skin color. Normal skin turgor.Extremities: Extremities exhibit normal ROM. No lower extremity edema.Neuro: Oriented X 3. No motor deficit. No sensory deficit.LABS, X-RAYS, AND EKGEKG: EKG time: 05:31 03/18/2021. No acute ischemia. Normal sinus rhythm. Rate: 78. Normal Pwaves. Q waves in lead V1 and V2. Normal axis. Normal ST and T waves and QT. EKG unchangedwhen compared with prior EKG. (April 2018). The study has been interpreted contemporaneously by me.Interpretation time: 05:34 03/18/2021.Chest X-ray: Hyperinflation present. Mediastinum normal. No pneumothorax, pleural effusion,cardiomegaly or vascular congestion. (bullous disease bilaterally). The X-rays were independentlyviewed by me.Laboratory Tests: EKG: (LOKI: 03/18/2021 05:20) ( MsgRcvd 03/18/2021 20:45) Final results Test Result Flag Units (Reference) [place] [address] -- -- RESPIRATORY CARE REPORT -- 3 Clinical Report - Physicians/Mid Levels [facility] Emergency Department [address] [place] [address] Phone #: ext- [phone] 03/18/2021 04:26 Patient: HERRERA DE LA CRUZ Sex: M : 1955 Age: 65y ---------NAME------- NUMBER SEX AGE ADMIT DISC. XRAY# F/C TYPE DOROTHY Morales [id number] 03/18/21 03/18/21 [id number] [place]F E/R DATE OF : 1955 M/R# [id number] #: [id number] TR-05 -- LOCATION: EKG 80512 COMPLETE:03/18/21 07:17 [place] [id number] PHYSICIAN: KEN ARAUJO CChest 2 View: (LOKI: 03/18/2021 04:39) ( MsgRcvd 03/19/2021 11:36) Final results Exam CHEST [address] [facility] [address] [facility] [place] [address] PHONE: [phone] FAX: [phone] Name .................. : DOROTHY Morales Acct Number.................. : [id number] ROOM. ................. : TR-05 Number ................... : [id number] Stay type ............. : E/R Discharge Date......... ... : 03/18/21 Admit Date ......... : 03/18/21 Admit Phys .................... : KEN Jeffrey Date of ....... : 1955 Family Phys ................... : GWEN GILDARDO Phone .................. : [phone] Age ................................ : 65 Film# .................. .:[id number] Sex ................................. : M Unsigned transcriptions are preliminary reports and do not represent a medical or legal document CHEST 2 VIEWS 88087 COMPLETE:03/18/21 04:52 DLA 13685 Reason(s): Shortness of Breath CHEST X-RAY: 2-VIEWS INDICATION: Shortness of breath. COMPARISON: 02/05/19 FINDINGS: Bilateral emphysematous changes are noted. Pneumonic infiltrate, pneumothorax, pleural effusion or cardiomegaly is not seen. IMPRESSION: Emphysematous changes. No acute pathology. Electronically Reviewed and Signed By Brijesh Tuttle MD , 03/19/21 11:35, KGG Transcribe Initials: LIVIER , Transcribe Date: 03/18/21 11:34, Dictation Date: Copy for: GWEN GARCIA via Rivono Copy for: [facility] DISCHARGEDPage 4 Clinical Report - Physicians/Mid Levels [facility] Emergency Department [address] [place] [address] Phone #: [phone] ext- [phone] 03/18/2021 04:26 Patient: HERRERA DE LA CRUZ Sex: M : 1955 Age: 65y.PROGRESS AND PROCEDURESCourse of Care: 05:07 03/18/21. COPD excerbation vs URI. Chest xray shows no pneumonia orpneumothorax. Duoneb given. He does not have nebulizer at home. 05:41 03/18/21. Patient felt improved after one duoneb treatment. EKG shows no ischemic changes. Second duoneb given. Given his COPD and sputum production, patient will be empirically started on zithromax 05:52 03/18/21. Patient felt significant improvement after second nebulizer treatment. Old ED records ordered. Disposition: Discharged. Condition: stable.CLINICAL IMPRESSION Acute exacerbation of COPD (emphysematous) INSTRUCTIONS Avoid tobacco smoke. Your Current Medications: Your current home medications have been reviewed. CONTINUE TAKING THE FOLLOWING MEDICATIONS: Cyclobenzaprine HCl Oral : 10 mg 2x a day, prn. Trelegy Ellipta Inhalation. Prescription Medications: prednisone 20 mg tablet Take 2 tablet once a day for 5 days -- Dispense 10 tablet. Refills: 0. Substitution permitted. Note to Pharmacy - Rx DISCOUNT CARD: $ 5.6. USE: BIN:[id number], PCN:MCKENZIE, Group:[id number], ID:[id number]. [employer] [address] [place] [address] [id number]. . Zithromax 250 mg tablet Take 1 tablet once a day -- Dispense 5 tablet. Refills: 0. Substitution permitted. Note to Pharmacy - Rx DISCOUNT CARD: $ 5.6. USE: BIN:[id number], PCN:MCKENZIE, Group:[id number], ID:[id number]. [employer] [address] [id number]. Phone: [phone] Clinical Report - Physicians/Mid Levels [facility] Emergency Department [address] [place] [address] Phone #: ext- [phone] 03/18/2021 04:26 Patient: HERRERA DE LA CRUZ Sex: M : 1955 Age: 65y [phone] . Understanding of the discharge instructions verbalized by patient. Follow-up with: Jose Powell MD, Cardiology, , [address] [place] [address], [facility] Follow up in two days if not better. Call for an appointment. Reason for referral: evaluation.(Electronically signed by Jefferson Varela 03/25/2021 07:24) Name Value Range Interpretation Code Description Data Cheryl rce(s) Supporting Document(s) ID Date Data Source [id number] 03/19/2021 11:35:00 AM EDT [facility] [address] [place] [address] PHONE: [phone] FAX: [phone] Name .................. : DOROTHY Morales Acct Number.................. : [id number] ROOM. ................. : TR-05 Number ................... : [id number] Stay type ............. : E/R Discharge Date......... ... : 03/18/21 Admit Date ......... : 03/18/21 Admit Phys .................... : KEN Jeffrey Date of ....... : 1955 Family Phys ................... : GWEN GILDARDO Phone .................. : [phone] Age ................................ : 65 Film# .................. .:[id number] Sex ................................. : M Unsigned transcriptions are preliminary reports and do not represent a medical or legal document CHEST 2 VIEWS 40394 COMPLETE:03/18/21 04:52 DLA 51398 Reason(s): Shortness of Breath CHEST X-RAY: 2-VIEWS INDICATION: Shortness of breath. COMPARISON: 02/05/19 FINDINGS: Bilateral emphysematous changes are noted. Pneumonic infiltrate, pneumothorax, pleural effusion or cardiomegaly is not seen. IMPRESSION: Emphysematous changes. No acute pathology. Electronically Reviewed and Signed By Brijesh Tuttle MD , 03/19/21 11:35, KGG Transcribe Initials: DZ , Transcribe Date: 03/18/21 11:34, Dictation Date: Copy for: GWEN GARCIA via modem Copy for: 710 [facility] DISCHARGED Page 1 of 1 Name Value Range Interpretation Code Description Data Cheryl rce(s) Supporting Document(s) ID Date Data Source [id number] 03/18/2021 08:45:00 [place] [address] RESPIRATORY CARE REPORT ==== ---------NAME------- NUMBER SEX AGE ADMIT DISC. XRAY# [facility]KATH Morales [id number] 03/18/21 03/18/21 [id number] [place]F E/R DATE OF : 1955 M/R# [id number] #: [id number] TR-05 LOCATION: EKG 16926 COMPLETE:03/18/21 0 7:17 [place] [id number] PHYSICIAN: KEN Jeffrey Name Value Range Interpretation Code Description Data Cheryl rce(s) Supporting Document(s) Procedure Social History No Information Vital Signs ID Date Data Source UNK Name Value Range Interpretation Code Description Data Source(s) Body mass index (BMI) [Ratio] 22.9 kg/m2 22.9 k g/m2 MEDENT (Jose Powell MD) Body temperature 97.5 [degF] 97.5 [degF] MEDENT (Jose Powell MD) Systolic blood pressure 129 mm[Hg] 129 mm[Hg] M EDENT (Jose Powell MD) Diastolic blood pressure 85 mm[Hg] 85 mm[Hg] MEDENT (Jose Powell MD) Heart rate 94 /min 94 /min MEDENT (Jose Powell MD) Oxygen saturation in Arterial blood by Pulse oximetry 95 % 95 % MEDENT (Jose Powell MD) Body height 71 [in_i] 71 [in_i] MEDENT (Jose Powell MD) 5'11" Body weight 164.00 [lb_av] 164.00 [lb_av] MEDEN T (Jose Powell MD) Body temperature 97.5 [degF] 97.5 [degF] MEDENT (Jose Powell MD) Systolic blood pressure 129 mm[Hg] 129 mm[Hg] M EDENT (Jose Powell MD) Diastolic blood pressure 85 mm[Hg] 85 mm[Hg] MEDENT (Jose Powell MD) Body mass index (BMI) [Ratio] 22.9 kg/m2 22.9 k g/m2 MEDENT (Jose Powell MD) Heart rate 94 /min 94 /min MEDENT (Jose Powell MD) Oxygen saturation in Arterial blood by Pulse oximetry 95 % 95 % CELIAENT (Jose Powell MD) Body mass index (BMI) [Ratio] 21.4 kg/m2 21.4 k g/m2 MEDENT (Jose Powell MD) Body temperature 98.1 [degF] 98.1 [degF] MEDENT (Jose Powell MD) Systolic blood pressure 130 mm[Hg] 130 mm[Hg] M EDENT (Jose Powell MD) Diastolic blood pressure 82 mm[Hg] 82 mm[Hg] MEDENT (Jose Powell MD) Heart rate 98 /min 98 /min CELIAENT (Jose Powell MD) Oxygen saturation in Arterial blood by Pulse oximetry 95 % 95 % CELIAENT (Jose Powell MD) Body height 71 [in_i] 71 [in_i] MEDENT (Jose Powell MD) 5'11" Body weight 153.38 [lb_av] 153.38 [lb_av] CELIAEN T (Jose Powell MD) Body mass index (BMI) [Ratio] 21.4 kg/m2 21.4 k g/m2 USMAN (Jose Powell MD) Body temperature 98.1 [degF] 98.1 [degF] USMAN (Jose Powell MD) Systolic blood pressure 130 mm[Hg] 130 mm[Hg] M EDENT (Jose Powell MD) Diastolic blood pressure 82 mm[Hg] 82 mm[Hg] MEDSTEPHANIA (Jose Powell MD) Heart rate 98 /min 98 /min USMAN (Jose Powell MD) Oxygen saturation in Arterial blood by Pulse oximetry 95 % 95 % USMAN (Jose Powell MD)
--- OUTSIDE RECORDS SUMMARY | 2021-08-20 19:40 | CCD | Continuity of Care Document ---
Author Author [facility] Organization Unknown Address [address] [place] [address] Phone [phone] Care Team Providers Care Road Traffic Controller Name Role Phone Ivana JESUSCKarine AUTM [phone] Social History Type Date Description Comments Sex Unknown Medications Active Medications SIG Qnty Indications Ordering Provide r Date Cyclobenzaprine HCL 10mg Tablets take 1 tablet by mouth twice daily as needed for muscle spasm 60tabs [facility] 03/09/2021 Breo Ellipta 100-25mcg/Inh Aerosol [facility] Medications Administered in Office Medication SIG Qnty [...] 95 % Procedures Date Code Description Status 03/09/2021 49133 Office/Outpatient Established Mo d MDM 30-39 Min Completed Encounters Type Date Location Provider Dx Diagnosis Office Visit 03/09/2021 11:00[facility] I10 Essential (primary) hypertension J43.9 Emphysema, unspecified M45.2 Ankylosing spondylitis of [facility] Assessments Date Code Description Provider 03/09/2021 I10 Essential (primary) hypertension [facility] 03/09/2021 J43.9 Emphysema, unspecified Jeromy maradiaga [facility] 03/09/2021 M45.2 Ankylosing spondylitis of [facility]omy Powell [facility]
--- OUTSIDE RECORDS SUMMARY | 2021-08-20 21:37 | CCD ---
Author Author [facility] Organization [facility] Address Unknown Phone Unavailable Care Team Providers Care Receipt And Report Clerk Name Role Phone Jefferson Varela MD Unavailable [...] MAQBOOL JOSE ROSADO Unavailable Unavailable GWEN MAQBOOL OJSE ROSADO Unavailable Unavailable GWEN MAQBOOL JOSE ROSADO [...] MAQBOOL JOSE MD Unavailable Unavailable GWEN, MAQBOOL JOES MD Unavailable Unavailable GWEN, MAQBOOL JOSE MD [...] is protected by Article 27-F of the [facility] Public Health law. If you continue you may have access to information: Regarding HIV / AIDS; Provided by facilities licensed or operated by the [facility] Office of Mental Health; or Provided by the [facility] Office for People With Developmental Disabilities. If such information is present, then the following [facility] mandated warning applies: This information has been [...] law may result in a fine or skilled nursing sentence or both. A general authorization for the release of medical or other information is NOT sufficient authorization for further disc losure. Allergies and Adverse Reactions Type Description Substance Reaction Status Data Source(s ) No Known Allergies No Known Allergies [facility] Family History Family Member Name Family Member Gender Family Member Status Date o f Status Description Data Source(s) Unknown Male Problem [facility] ([facility]) Encounters Encounter Providers Location Date Indications Data Source(s ) Outpatient Attender: JOSE POWELL MD Medical [facility] [address] 07/19 10:45:00 AM EDT [facility] (Jose Powell MD) Emergency Attender: Jefferson Varela MDConsultant: JOSE POWELL MD 03/18/2021 04:29:00 AM EDT - 03/18/2021 06:17:00 AM EDT [facility] Patient discharged. Outpatient Attender: JOSE POWELL MD Medical [facility] [address] 03/09 11:00:00 AM EDT [facility] (Jose Powell [...] BY MOUTH ONCE A DAY SOLD: 03/18/2021 [facility] 250 mg 03/18/2021 12:00:00 AM EDT [...] type / Coverage type Policy ID Covered green party ID Covered green party's relationship to larsen Policy Larsen Plan Information IKER CLAIM ADMIN WORK COMP IRA [facility]#[id number] SP B#[phone] [facility] SECURE [place] [facility] [place] [id number] 18 [id number] [facility] Secure Horiz[employer] [facility] Commercial [id number] Self [id number] [employer] [place] [id number] 18 [id number] [employer] UN MEDICARE-PHYSICIAN [id number] 18 [id number] SEC[employer]/UNHC MEDICARE -CLINIC [id number] 18 [id number] MEDICARE -O/P [id number] 18 [id number] UNHC AMERICHOICE XIX -HMO [id number] 18 [id number] AMERICHOICE UNHC XIX PHY -HMO [id number] 18 [id number] MEDICARE [id number] SP [id number] A MEDICARE COMPLETE [id number] SP [id number] MEDICARE [id number] SP [id number] A MEDICARE [id number] SP [id number] SELF PAY 5 UNAVAILABLE 1 [place]A [place] ADM S 2 [id number] [employer] UN MEDICARE O/P [id number] 18 [id number] A Problems, Conditions, and Diagnoses Code Display Name Description Problem Type Effective Dates Data Source(s) B50209 Nicotine dependence, unspecified, uncomp licated Nicotine dependence, unspecified, uncomplicated Diagnosis 03/18/2021 04:29:00 AM EDT [facility] J439 Emphysema, unspecified Emphysema, unspecified Diagnosi s 03/18/2021 04:29:00 AM EDT [facility] R0600 Dyspnea, unspecified Dyspnea, unspecified Diagnosis 03/18/2021 [facility] Procedure Description Date Indications Data Source(s) OFFICE OUTPATIENT VISIT 15 MINUTES 07/19/2021 12:00:00 AM EDT [facility] (Jose Powell MD) OFFICE OUTPATIENT VISIT 25 MINUTES 03/09/2021 12:00:00 AM EDT [facility] (Jose Powell MD) Results ID Date Data Source [id number] 03/18/2021 04:29:00 AM EDT [facility] 1 OrderSheet [facility] Emergency Department [address] [place] [address] Phone #: ext- [phone] 03/18/2021 04:26 Patient: [...] by Jefferson Varela (07:24 03/25/2021)] 2 OrderSheet [facility] Emergency Department [address] [place] [address] Phone #: ext- [phone] 03/18/2021 04:26 Patient: HERRERA DE LA CRUZ Sex: M : 1955 Age: 65y[Electronically locked by Vera Romero R.N. (06:18 03/18/2021)] Name Value Range Interpretation Code Description Data Cheryl rce(s) Supporting Document(s) ID Date Data Source [id number] 03/18/2021 04:29:00 AM EDT [facility] 1 Medication Reconciliation Report [facility] Emergency Department [address] [place] [address] Phone #: [phone]- [phone] 03/18/2021 04:26 Patient: HERRERA DE LA CRUZ [...] - Rx DISCOUNT CARD: $ 5.6. USE: BIN:[id number],PCN:MCKENZIE, Group:EMR, ID:[id number].Pharmacy - [facility] [address] [place] [address]. .Zithromax 250 mg tablet Take 1 tablet once a day -- Dispense 5 tablet. Refills: 0. Substitutionpermitted. Note to Pharmacy - Rx DISCOUNT CARD: $ 5.6. USE: BIN:[id number], PCN:MCKENZIE,Group:EMR, ID:[id number].[facility] [address] [place] [address] [phone]. Phone: [phone] Medication Reconciliation Report [facility] Emergency Department [address] [place] [address] Phone #: ext- [phone] 03/18/2021 04:26 Patient: HERRERA DE LA CRUZ Sex: M : 1955 Age: [id number] . -- Jefferson Varela Name Value Range Interpretation Code Description Data Cheryl rce(s) Supporting Document(s) ID Date Data Source [id number] 03/18/2021 04:29:00 AM EDT [facility] 1 Medication Administration Record [facility] Department [address] [place] [address] Phone #: ext- [phone] 03/18/2021 04:26 Patient: [...] rce(s) Supporting Document(s) ID Date Data Source [id number] 03/18/2021 04:29:00 AM EDT [facility] 1 General Instructions [facility] Department [address] [place] [address] Phone #: [phone]- [phone] 03/18/2021 04:26 Patient: HERRERA DE LA CRUZ [...] - Rx DISCOUNT CARD: $ 5.6. USE: BIN:[id number],PCN:MCKENZIE, Group:EMR, ID:[id number].[employer] - [facility] [address] [place] [address] [phone]. .Zithromax 250 mg tablet Take 1 tablet once a day -- Dispense 5 tablet. Refills: 0. Substitutionpermitted. Note to Pharmacy - Rx DISCOUNT CARD: $ 5.6. USE: BIN:[id number], PCN:MCKENZIE,Group:EMR, ID:[id number].[facility] [address] [place] [address] [phone]. .Understanding of the discharge instructions verbalized by patient.Follow-up with: Jose Powell MD, Cardiology, , [address] [place] [address], [address] Follow up in two days if not better. Call for an appointment. Reason for referral: evaluation. ADDITIONAL INFORMATIONBronchitis, Antibiotic Treatment (Adult) 2 General Instructions [facility] Emergency Department [address] [place] [address] Phone #: ext- [phone] 03/18/2021 04:26 Patient: [...] away from secondhand smoke. You may use fybc-tkd-galigfs medicines to control fever or pain, unless another medicine 3 General Instructions [facility] Department [address] [place] [address] Phone #: ext- [phone] 03/18/2021 04:26 Patient: HERRERA DE LA CRUZ [...] loosen mucus in your nose and lungs. Aivi-mct-hhwnhjb cough, cold, and sore-throat medicines will not [...] (influenza vaccine).When to seek medical adviceCall your [facility] provider right away if any of these [...] or pain with breathing 4 General Instructions [facility] Emergency Department [address] [place] [address] Phone #: ext- [phone] 03/18/2021 04:26 Patient: HERRERA DE LA CRUZ Sex: M : 1955 Age: 65y [phone] [employer] [address] [place] [address], [place] [address]. All rights reserved. This information is not intended as asubstitute for professional medical care. Always follow your healthcare professional's instructions. You have been given the following additional information: Bronchitis, Antibiotic Treatment (Adult)(Electronically signed by Jefferson Varela 03/25/2021 07:24) Name Value Range Interpretation Code Description Data Cheryl rce(s) Supporting Document(s) ID Date Data Source [id number] 03/18/2021 04:29:00 AM EDT [facility] 1 Clinical Report - Nurses [facility] Emergency Department [address] [place] [address] Phone #: ext- [phone] 03/18/2021 04:26 Patient: HERRERA DE LA CRUZ Sex: M : 1955 Age: 65yTRIAGEArrived by private vehicle. Historian: patient.Triage time: 04:27 03/18/2021.Chief Complaint: DIFFICULTY BREATHING.Onset. (4 days ago). --04:28 03/18/21 Vera Mcadams R.N.Acuity: LEVEL 3.SEPSIS SCREEN: SIRS SCREEN: respiratory rate greater than 20. SEPSIS SCREEN NEGATIVE. Nosuspected or confirmed signs of infection present. --04:31 03/18/21 Vera Mcdaams R.N.04:29 03/18/21. BP: 115/87. MAP: 96. HR: 89. RR: 22. O2 saturation: 94%. Temp: 97.7 F. Pain level now:04/14. --04:31 03/18/21 Vera Mcadams R.N.( sore throat, head ache, one episode of vomiting just [employer]). He has had a cough. --04:35 03/18/21 [...] Tunnel Surgery.Cholecystectomy. 2 Clinical Report - Nurses [facility] Emergency Department [address] [place] [address] Phone #: [phone]- [phone] 03/18/2021 04:26 Patient: HERRERA DE LA CRUZ [...] returned from radiology by wheelchair with radiology ct technologist. --05:01 03/18/21 Vera Mcadams R.N. 05:02 03/18/2021 [...] Mcadams RN 3 Clinical Report - Nurses [facility] Emergency Department [address] [place] [address] Phone #: ext- [phone] 03/18/2021 04:26 Patient: HERRERA DE LA CRUZ [facility]#: [id number] Sex: M : 1955 Age: 65y 05:38 [...] Patient verbalized understanding. Written instructions provided in Russian. The patient was discharged by the physician. He was discharged home. He left ambulatory and via private vehicle. --06:17 03/18/21 Vera Mcadams R.N. 06:16 03/18/21. BP: 107/74. MAP: 85. HR: 87. RR: 18. O2 saturation: 97%. Temp: 97.1 F. Pain level now: 3/10. --06:17 03/18/21 Vera Mcadams R.N.[facility] ked/Released at 03/18/2021 06:18 by Vera Mcadams R.N. Name Value Range Interpretation Code Description Data Cheryl rce(s) Supporting Document(s) ID Date Data Source [id number] 03/18/2021 04:29:00 AM EDT [facility] 1 Clinical Report - Physicians/Mid Levels [facility] Emergency Department [address] [place] [address] Phone #: ext- [phone] 03/18/2021 04:26 Patient: [...] Ellipta Inhalation. Allergies: 2 Clinical Report - Physicians/[facility] Emergency Department [address] [place] [address] Phone #: ext- [phone] 03/18/2021 04:26 Patient: HERRERA DE LA CRUZ [...] results Test Result Flag Units (Reference) [place] [address] -- -- RESPIRATORY CARE REPORT -- 3 Clinical Report - Physicians/Mid Levels [facility] Emergency Department [address] [place] [address] Phone #: ext- [phone] 03/18/2021 04:26 Patient: HERRERA DE LA CRUZ Sex: M : 1955 Age: 65y ---------NAME------- NUMBER SEX AGE ADMIT DISC. XRAY# F/C TYPE DOROTHY Morales [id number] 65 03/18/21 03/18/21 [id number] [place] E/R DATE OF : 1955 M/R# [id number] #: [id number] TR-05 -- LOCATION: EKG 77589 COMPLETE:03/18/21 07:17 [place] [id number] PHYSICIAN: KEN ARAUJO CChest 2 View: (LOKI: 03/18/2021 04:39) ( MsgRcvd 03/19/2021 11:36) Final results Exam CHEST 2 VIEWS [facility] [address] [facility] [place] [address] PHONE: [phone] FAX: [phone] Name .................. : DOROTHY Morales Acct Number.................. : [id number] ROOM. ................. : TR-05 Number ................... : [id number] Stay type ............. : E/R Discharge Date......... ... : 03/18/21 Admit Date ......... : 03/18/21 Admit Phys .................... : KEN Jeffrey Date of ....... : 1955 Family Phys ................... : GWEN GILDARDO Phone .................. : [phone] Age ................................ : 65 Film# .................. .:[id number] Sex ................................. : M Unsigned transcriptions are preliminary reports and do not represent a medical or legal document CHEST 2 VIEWS 54302 COMPLETE:03/18/21 04:52 DLA 32956 Reason(s): Shortness of Breath CHEST X-RAY: 2-VIEWS INDICATION: Shortness of breath. COMPARISON: 02/05/19 FINDINGS: Bilateral emphysematous changes are noted. Pneumonic infiltrate, pneumothorax, pleural effusion or cardiomegaly is not seen. IMPRESSION: Emphysematous changes. No acute pathology. Electronically Reviewed and Signed By Brijesh Tuttle MD , 03/19/21 11:35, KGG Transcribe Initials: LIVIER , Transcribe Date: 03/18/21 11:34, Dictation Date: Copy for: GWEN GARCIA via DNA Guide Copy for: [facility] DISCHARGEDPage 4 Clinical Report - Physicians/Mid Levels [facility] Emergency Department [address] [place] [address] Phone #: [phone] ext- [phone] 03/18/2021 04:26 Patient: HERRERA DE LA CRUZ [...] - Rx DISCOUNT CARD: $ 5.6. USE: BIN:[id number], PCN:MCKENZIE, Group:EMR, ID:[id number]. [facility] [address] [place] [address] [phone]. . Zithromax 250 mg tablet Take 1 tablet once a day -- Dispense 5 tablet. Refills: 0. Substitution permitted. Note to Pharmacy - Rx DISCOUNT CARD: $ 5.6. USE: BIN:[id number], PCN:MCKENZIE, Group:EMR, ID:[id number]. [facility] [address] [phone]. Phone: [phone] Clinical Report - Physicians/Mid Levels [facility] Emergency Department [address] [place] [address] Phone #: ext- [phone] 03/18/2021 04:26 Patient: HERRERA DE LA CRUZ Sex: M : 1955 Age: 65y [phone] . Understanding of the discharge instructions verbalized by patient. Follow-up with: Jose Powell MD, Cardiology, , [address] [place] [address], [facility] Follow up in two days if not better. Call for an appointment. Reason for referral: evaluation.(Electronically signed by Jefferson Varela 03/25/2021 07:24) Name Value Range Interpretation Code Description Data Cheryl rce(s) Supporting Document(s) ID Date Data Source [id number] 03/19/2021 11:35:00 AM EDT [facility] [address] [place] [address] PHONE: [phone] FAX: [phone] Name .................. : DOROTHY Morales Acct Number.................. : [id number] ROOM. ................. : TR-05 Number ................... : [id number] Stay type ............. : E/R Discharge Date......... ... : 03/18/21 Admit Date ......... : 03/18/21 Admit Phys .................... : KEN Jeffrey Date of ....... : 1955 Family Phys ................... : GWEN GILDARDO Phone .................. : [phone] Age ................................ : 65 Film# .................. .:[id number] Sex ................................. : M Unsigned transcriptions are preliminary reports and do not represent a medical or legal document CHEST 2 VIEWS 24624 COMPLETE:03/18/21 04:52 DLA 80993 Reason(s): Shortness of Breath CHEST X-RAY: 2-VIEWS [...] rce(s) Supporting Document(s) ID Date Data Source [id number] 03/18/2021 08:45:00 [place] [address] RESPIRATORY CARE REPORT ==== ---------NAME------- NUMBER SEX AGE ADMIT DISC. XRAY# [facility]KATH Morales [id number] 65 03/18/21 03/18/21 [id number] [place] E/R DATE OF : 1955 M/R# [id number] #: [id number] TR-05 LOCATION: EKG 70831 COMPLETE:03/18/21 0 7:17 [place] [address] PHYSICIAN: KEN Jeffrey Name Value Range Interpretation [...] [lb_av] [facility] T (Jose Powell MD) Body mass index [...]
== END 2021-08-20 20:09 | disposition left against medical advice (07) ==
LOC: M ED 19:32
DX: Z53.29 Procedure and treatment not carried out because of patient's decision for other reasons (principal)